=== PATIENT | male | born 1940 | race Caucasian/White ===

== ENCOUNTER 2025-06-03 09:31 | Outpatient (CLI) | payer MEDICARE, OTHER ==
[2025-06-03 10:15] LABS: ALT (SGPT) 11 U/L (Less than 45); AST (SGOT) 16 U/L (11-34); Albumin 3.9 g/dL (3.1-4.5); Alkaline Phosphatase 70 U/L (40-110); Anion Gap 14 mmol/L (10-20); BUN (Urea Nitrogen) 16 mg/dL (8.4-25.7); Bilirubin, Total 0.4 mg/dL (0.3-1.2); Calc. Creatinine Clearance 0 mL/min (70-130); Calcium 9.0 mg/dL (7.8-10.44); Carbon Dioxide 24 mmol/L (23-31); Cardiac Risk 2.0 (Less than 4.5); Chloride 106 mmol/L (98-107); Cholesterol 137 mg/dl (< 200 Desired); Globulin 2.6 g/dL (2.4-3.5); Glucose 112 mg/dL (83-110); HDL Cholesterol 67 mg/dL (>60 Neg Risk); LDL Cholesterol, Calculated 62 mg/dL; Potassium 4.6 mmol/L (3.5-5.1); Sodium 139 mmol/L (136-145); Triglycerides 42 mg/dL (Less than 150)
== END 2025-06-03 09:32 | disposition home or self-care (01) ==
LOC: MADLAB 09:31
PROVIDERS: ATTEND Family Medicine
DX: E11.9 Type 2 diabetes mellitus without complications (principal); E78.2 Mixed hyperlipidemia
CPT/HCPCS: 36415; 80053; 80061; 83036